=== PATIENT | female | born 1985 | race American Indian/Alaskan Native ===

== ENCOUNTER 2018-08-04 00:20 | Emergency (ER) | payer MEDICAID, OTHER ==
--- NOTE | 2018-08-04 01:35 | XRay Report ---
PROCEDURE: LUMBAR SPINE, 2 VIEWS TECHNIQUE: Lumbar spine radiographs, frontal and lateral views. CPT 89314 HISTORY: Pain COMPARISONS: None . FINDINGS: Alignment: Normal . Vertebral body heights/Disk spaces: Normal . Fracture(s): None . Facets: Normal . Bone mineralization: Normal . IMPRESSION: Normal Examination . This document is electronically signed by Jeronimo Summers MD., August 04 2018 01:33:19 AM ET
--- NOTE | 2018-08-04 01:36 | XRay Report ---
PROCEDURE: CERVICAL SPINE, 2 VIEWS TECHNIQUE: Cervical spine radiographs, AP and lateral projections. CPT 36831 HISTORY: Pain COMPARISON: None FINDINGS: Prevertebral soft tissues: Normal Alignment: Normal Vertebral body heights/Disk spaces: Normal Fracture(s): None Facets: Normal Bone mineralization: Normal IMPRESSION: Normal Examination This document is electronically signed by Jeronimo Summers MD., August 04 2018 01:34:42 AM ET
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
[2018-08-04 03:51] VITALS: BP 111/72
== END 2018-08-04 03:50 | disposition home or self-care (01) ==
LOC: EDBD → ED 00:20
DX: S16.1XXA Strain of muscle, fascia and tendon at neck level, initial encounter (principal); S39.012A Strain of muscle, fascia and tendon of lower back, initial encounter; R07.89 Other chest pain; F17.200 Nicotine dependence, unspecified, uncomplicated; Z98.890 Other specified postprocedural states; V49.59XA Passenger injured in collision with other motor vehicles in traffic accident, initial encounter; Y93.89 Activity, other specified; Y92.410 Unspecified street and highway as the place of occurrence of the external cause; Y99.8 Other external cause status
CPT/HCPCS: 72040; 72100